=== PATIENT | male | born 1965 | race Two or more races ===

== ENCOUNTER → 2016-12-09 | Outpatient (REF) | payer OTHER ==
[2016-12-09 12:07] LABS: BASO # 0.1 10^3/uL (0.0-0.2); BASO % 1.2 % (0.0-1.0); EOS # 0.2 10^3/uL (0.0-0.50); EOS % 2.9 % (0.0-3.0); IMMATURE GRANULOCYTE % 0.1 % (0-0); LYMPH # 2.4 10^3/uL (1.5-4.5); LYMPH % 35.3 % (24.0-44.0); MEAN CORPUSCULAR HEMOGLOBIN 30.3 pg (27.0-33.0); MEAN CORPUSCULAR HGB CONC 34.9 g/dl (32.0-36.5); MEAN CORPUSCULAR VOLUME 86.9 fl (80.0-96.0); MONO # 0.7 10^3/uL (0.0-0.8); MONO % 9.7 % (0.0-5.0); NEUTROPHILS # 3.4 10^3/uL (1.8-7.7); NEUTROPHILS % 50.8 % (36.0-66.0); PLATELET COUNT, AUTOMATED 246 10^3/uL (150-450); RED CELL DISTRIBUTION WIDTH 12.8 % (11.5-14.5); WHITE BLOOD COUNT 6.8 10^3/uL (4.0-10.0)
[2016-12-09 12:47] LABS: ANION GAP 10 MEQ/L (8-16); BLOOD UREA NITROGEN 23 MG/DL (7-18); CALCIUM LEVEL 9.9 MG/DL (8.5-10.1); CARBON DIOXIDE LEVEL 29 MEQ/L (21-32); CHLORIDE LEVEL 101 MEQ/L (98-107); CREATININE FOR GFR 1.07 MG/DL (0.70-1.30); GLOMERULAR FILTRATION RATE > 60.0 (>56); GLUCOSE, FASTING 84 MG/DL (70-105); IMMUNOGLOBULIN G 781 MG/DL (681-1648); IMMUNOGLOBULIN M 47.8 MG/DL (40-230); POTASSIUM SERUM 4.2 MEQ/L (3.5-5.1); SODIUM LEVEL 140 MEQ/L (136-145)
== END ==
LOC: M SFHCPLAZ 09:56
PROVIDERS: ATTEND Internal Medicine Infectious Disease
DX: A04.72 Enterocolitis due to Clostridium difficile, not specified as recurrent (principal)

== ENCOUNTER → 2017-11-09 | Outpatient (CLI) | payer BC, OTHER ==
[~2017-11-09] MED LIST: METHACHOLINE KIT (J7674) INH
== END ==
LOC: M CARPUL 09:40
DX: R05 Cough (principal); R06.2 Wheezing
CPT/HCPCS: J7674

== ENCOUNTER 2018-01-20 07:22 | Day surgery (SDC) | payer BC, OTHER ==
[2018-01-20] MEDS ORDERED: LIDOCAINE 2% INJ 100 MG/5 ML SDV (FOR ANES.) As Ordered (07:40)
[2018-01-20] MEDS ORDERED: PROPOFOL 200 MG/20 ML VIAL As Ordered ×3 (07:40→09:31)
[2018-01-20] MEDS: NS 1,000 ML IV (07:52)
== END 2018-01-20 10:09 | disposition home or self-care (01) ==
LOC: M OPP 07:22
DX: Z12.11 Encounter for screening for malignant neoplasm of colon (principal); D12.2 Benign neoplasm of ascending colon; D12.3 Benign neoplasm of transverse colon
CPT/HCPCS: 45380

== ENCOUNTER 2023-07-01 08:34 | Day surgery (SDC) | payer BC ==
[~2023-07-01] VITALS: Ht 177.8 cm; Wt 85.5 kg
[~2023-07-01 08:34] MED LIST changes: +ASPI81TA26 PO; +BISO5TAB14 PO; +CENT1TAB PO; +CRES10TA PO; +CYCL-707 PO; +FLUO-96 PO; +FLUO20CA22 PO; -METHACHOLINE KIT (J7674) INH; +OLME-1 PO; +OMEP-173 PO; +ROSU40TA63 PO
[2023-07-01] MEDS: NS 1,000 ML IV ONE (08:54)
[2023-07-01] MEDS ORDERED: propofoL 200 MG/20 ML VIAL As Ordered ONE (10:08)
[2023-07-01 10:32] VITALS: TEMP 97.2
[2023-07-01 10:50] VITALS: BP 167/93; O2SAT 95
== END 2023-07-01 10:59 | disposition home or self-care (01) ==
LOC: M OPP 08:34
PROVIDERS: ATTEND Surgery
DX: Z12.11 Encounter for screening for malignant neoplasm of colon (principal); D12.2 Benign neoplasm of ascending colon; Z80.0 Family history of malignant neoplasm of digestive organs; I10 Essential (primary) hypertension; E78.00 Pure hypercholesterolemia, unspecified; Z79.899 Other long term (current) drug therapy; Z88.1 Allergy status to other antibiotic agents